=== PATIENT | female | born 1965 | race Caucasian/White ===

== ENCOUNTER 2016-09-18 09:59 | Emergency (ER) | payer OTHER ==
[~2016-09-18] VITALS: Ht 152.4 cm; Wt 83.6 kg
[~2016-09-18 09:59] MED LIST: PREDNISONE10 MG PO; VALIUM5 MG PO
[2016-09-18 10:47] LABS: BASOPHIL COUNT 0.1 K/uL (0-0.1); EOSINOPHIL (%) 1.6 % (0-5); EOSINOPHIL COUNT 0.1 K/uL (0-0.3); IMMATURE GRANULOCYTE (%) 0.2 % (0.0-0.7); INSTRUMENT ABS NEUTROPHIL CT 4.1 K/uL; LYMPHOCYTE COUNT 3.4 K/uL (1.0-2.8); MCH 29.8 PG (29.0-34.0); MCHC 33.2 G/DL (30.0-36.0); MCV 89.8 FL (83-99); MONOCYTE (%) 4.9 % (3-12); MONOCYTE COUNT 0.4 K/uL (0-0.8); NEUTROPHIL (%) 50.6 % (45-76); NEUTROPHIL COUNT 4.1 K/uL (1.8-6.4); PLATELET COUNT 308 K/uL (156-360); RBC DIS.WIDTH-CV 13.4 % (11.8-14.6); RBC DIS.WIDTH-SD 44.4 % (39-53); RED BLOOD COUNT 4.23 M/uL (3.80-5.20); WHITE BLOOD COUNT 8.1 K/uL (4.1-10.2)
[2016-09-18 10:57] LABS: CHLORIDE 112 mEq/L (99-109); SODIUM 143 mEq/L (136-147)
[2016-09-18 10:59] LABS: D-DIMER ELISA 0.45 mg/L FEU (< 0.57); GLUCOSE 97 mg/dL (70-99)
[2016-09-18 11:00] LABS: ANION GAP 10 MEQ/L (2-14)
[2016-09-18 11:03] LABS: GFR ESTIMATE (CALCULATED) > 59 mL/min/; UREA NITROGEN (BUN) 12 mg/dL (9-23)
[2016-09-18 11:08] LABS: TROP-I INTERPRETATION NEGATIVE; TROPONIN-I < 0.01 ng/mL (0.0-0.30)
[2016-09-18 13:13] LABS: TROP-I INTERPRETATION NEGATIVE; TROPONIN-I < 0.01 ng/mL (0.0-0.30)
[2016-09-18] MEDS ORDERED: PROAIR HFA8.5 GM IH (13:29)
[2016-09-18] MEDS ORDERED: ZITHROMAX Z-PA250 MG PO (13:29)
[2016-09-18 14:35] VITALS: BP 114/85
== END 2016-09-18 14:36 | disposition home or self-care (01) ==
LOC: EME 09:59
PROVIDERS: Emergency Medicine
DX: R07.89 Other chest pain (principal); J40 Bronchitis, not specified as acute or chronic; F17.200 Nicotine dependence, unspecified, uncomplicated
CPT/HCPCS: 71010; 80048; 84484; 85025; 85379; 85610; 85730; 93005; 99281; 99284

== ENCOUNTER → 2017-12-20 | Outpatient (CLI) | payer OTHER ==
[~2017-12-20] MED LIST changes: +HYDROCHLOROTHIA25 MG PO; +NEURONTIN300 MG PO; +NEXIUM40 MG PO; +NORCO 5/3251 TABLET PO; +PHENTERMINE H37.5 MG PO; +PROAIR HFA8.5 GM IH; +SKELAXIN800 MG PO; +VITAMIN D2000 UNI1 PO; +ZITHROMAX Z-PA250 MG PO
[2017-12-20 10:07] LABS: PTT 28.5 SEC (25-37)
== END | disposition home or self-care (01) ==
LOC: OPR 08:51 → EDSTATUS 09:00
PROVIDERS: Anesthesiology
PROC: 0QB03ZX Excision of Lumbar Vertebra, Percutaneous Approach, Diagnostic (ICD-10-PCS; principal; 2017-12-20)
DX: M89.9 Disorder of bone, unspecified (principal); K21.9 Gastro-esophageal reflux disease without esophagitis; M19.90 Unspecified osteoarthritis, unspecified site
CPT/HCPCS: 77012; 85610; 85730; 88305; 88342 TC; J2250; J2310; J3010